=== PATIENT | male | born 1990 | race Caucasian/White ===

== ENCOUNTER 2018-09-14 13:07 | Emergency (ER) | payer MEDICAID ==
[~2018-09-14] VITALS: Ht 188 cm; Wt 99.8 kg
[2018-09-14] MEDS ORDERED: ACETAMINOPHEN ES 500 MG TABLET PO ONE (13:30)
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
[2018-09-14] MEDS ORDERED: ACETAMINOPHEN ES 500 MG TABLET ONE (13:52)
--- NOTE | 2018-09-14 15:32 | NUR ---
PT WAS D/C'd TO HOME. D/C INSTRUCTIONS GIVEN TO THE PT.
[2018-09-14 15:33] VITALS: BP 141/81
== END 2018-09-14 15:34 | disposition home or self-care (01) ==
LOC: ER 13:07
DX: S06.0X0A Concussion without loss of consciousness, initial encounter (principal); H60.11 Cellulitis of right external ear; Y04.2XXA Assault by strike against or bumped into by another person, initial encounter; Y93.89 Activity, other specified; Y92.89 Other specified places as the place of occurrence of the external cause; Y99.8 Other external cause status
CPT/HCPCS: 70450; A4663; A9150